=== PATIENT | female | born 1975 | race Hispanic/Latino ===

== ENCOUNTER 2016-09-22 09:59 | Emergency (ER) | payer OTHER ==
[~2016-09-22] VITALS: Ht 157.5 cm; Wt 69.1 kg
[~2016-09-22 09:59] MED LIST: AMIT100T2 PO; CEFD300C3 PO; CITA40TA13 PO; HYDR-4003 PO; METO-274 PO; ONDA8TAB7 PO; OXYC1TAB24 PO; TAMS0.4C98 PO; TOPI-59 PO
[2016-09-22 10:02] VITALS: BP 136/94; PULSE 117; RESP 16; O2SAT 100
--- NOTE | 2016-09-22 10:21 | ED.REPORT ---
HPI-Abd Pain F 40 and Over Date of Service Sep 22, 2016 ED Provider: Chidi Aldana DO A 40 year old female with a history of kidney stones and hypertension presents to the ED complaining of abdominal pain that began 4 days ago. She describes her pain as "throbbing" . Associated symptoms include dysuria, chills, back pain , weakness and bilateral leg pain. Her symptoms have been constant since onset and she began to express concern when symptoms did not resolve. Patient took metronidazole with little relief which she had left over from a different infection 2 months. She denies fever, abnormal vaginal discharge or . Nursing Notes Stated Complaint: BACK AND ABDOMINAL PAIN Chief Complaint: Female Abdominal Pain Nursing Notes Reviewed: Yes Allergies: Coded Allergies: Penicillins (Verified Allergy, Severe, RASH, 08/18/15) ketorolac tromethamine (Verified Allergy, Intermediate, Extrapyramidal Symptoms, 08/18/15) promethazine (Verified Adverse Reaction, Mild, jitterness and restlessness , 08/18/15) Uncoded Allergies: DROPERIDOL (Adverse Reaction, Intermediate, Agitation, 11/28/11) CONFIRMED 5-30 AND 5-31 "I NEED TO LEAVE' ANXIETY Scheduled Amitriptyline (Amitriptyline) 100 Mg Tablet 100 MG PO HS Amitriptyline (Amitriptyline) 75 Mg Tablet 75 MG PO HS Cefdinir (Cefdinir) 300 Mg Capsule 300 MG PO BID Citalopram (Citalopram) 40 Mg Tablet 40 MG PO DAILY Metoprolol Succinate ER (Metoprolol Succinate ER) 100 Mg Tab.er.24h 100 MG PO BID Metoprolol Succinate ER (Metoprolol Succinate ER) 100 Mg Tab.er.24h 100 MG PO DAILY Sulfamethoxazole/Trimeth 800-160 mg (Bactrim DS) 1 Each Tablet 1 TABLET PO BID Tamsulosin (Flomax) 0.4 Mg Capsule 0.4 MG PO DAILY Topiramate (Topiramate) 25 Mg Tablet 50 MG PO DAILY Scheduled PRN Hydrocodone-Acetaminophen 5-325 mg (Hydrocodone-Acetaminophen 5-325 mg) 1 Each Tablet 1 TABLET PO Q6H PRN PRN For Pain Ondansetron ODT (Zofran ODT) 8 Mg Tablet 8 MG PO Q6H PRN PRN For Nausea oxyCODONE-Acetaminophen 5-325 mg (oxyCODONE-Acetaminophen 5-325 mg) 1 Tab Tablet 1-2 TAB PO Q4H PRN PRN For Severe Pain General Time Seen by MD: 10:16 Chief Complaint Abdominal pain Hx Obtained From: Patient Arrived By: Walk-in Sudden in Onset?: No Onset Occurred: 4 days ago Symptom Duration: Since onset Progression since Onset: Constant Location: : LLQ: Suprapubic Quality: Throbbing Radiation: : Back Severity: Current: Moderate Severity: Maximum: Severe Associated with: Reports: Back pain, Chills, Dysuria, Denies: Fever, Vaginal bleeding, Vaginal discharge Pertinent Negative: Pt denies other symptoms Status: Negative - ED urine HCG Recent Healthcare: No recent doctor visit, No recent hospitalization Risk Factors )( AAA Risk Stratification Hypertension Risk factors reviewed Past Medical History Past Medical History History of kidney stones. History of ESBL E.coli GERD. Hypertension. Depression. Some intracranial event: Patient was transferred to [facility] with a H/A and abnormal CT and initial concern for possible hemorrhage. Thought to potentially be a parasite (patient report) followed at clinic, sound like concern was for cystercicosis. She follows with, I think a neurologist down in [place] for this. Frequent urinary tract infections. Reports: Hypertension Past Surgical History Tubual ligation Craniotomy Family History Noncontributory Smoking History Never Smoker Social History Other Social History: Good social support, , Local resident Ambulatory Status Independent Review of Systems Constitutional: Reports: Chills, Denies: Fever Cardiovascular: Denies: Chest pain GI: Reports: Abdominal pain Female: Reports: Dysuria, Flank pain, Denies: , Vaginal bleeding - abnl, Vaginal discharge Musculoskeletal: Reports: Back pain Complete sys rev & neg: except as marked. Physical Exam Vital Signs Vital Signs (First) Date Time Temp Pulse Resp B/P Pulse Ox O2 Delivery O2 Flow Rate FiO2 09/22/16 10:02 36.4 117 16 136/94 100 Room Air Initial VS: Reviewed Head / Eyes: Atraumatic, Normocephalic, PERRL Skin: Warm, Dry, No cyanosis Neurologic: Alert, Oriented, Nonfocal Psychiatric: Mood/affect normal, Behavior normal, Normal thought content General/Constitutional: Awake, Alert Distress / Hydration: Positive: Distress moderate Respiratory / Chest: Atraumatic, Breath sounds NL, Breath sounds = bilat, No respiratory distress Cardiovascular: Regular rhythm, Heart sounds NL Heart Rate / Rhythm: Positive: Tachycardia Abdomen: Atraumatic, Soft, No guarding, No rebound, No palpable mass, No pulsatile mass Tenderness/Guarding/Rebound: Positive: Tender LLQ..., Tender suprapubic Back: Atraumatic BACK: Right sided CVA tenderness to percussion. Upper Extremity / MS: Atraumatic, Inspection NL, Neurologic intact, Vascular intact, No edema Lower Extremity / Pelvis / MS: Atraumatic, Inspection NL, Neurologic intact, Vascular intact, No edema Interpretation & Diagnostics Lab Results Interpretation Result Diagram: 09/22/16 1140 09/22/16 1140 Test 09/22/16 10:55 09/22/16 11:40 09/22/16 12:27 09/22/16 12:30 Urine Color Yellow (YELLOW) Urine Appearance Hazy (CLEAR,HAZY) Urine pH 6.5 (5.0-8.0) Urine Specific Jewett N (1.003-1.035) Urine Protein Negativemg/dL (NEG,TRACE) Urine Glucose (UA) Negativemg/dL (NEGATIVE) Urine Ketones Negativemg/dL (NEGATIVE) Urine Occult Blood Negative (NEGATIVE) Urine Nitrite Negative (NEGATIVE) Urine Bilirubin Negative (NEGATIVE) Urine Urobilinogen Normalmg/dL (NORMAL) Urine Leukocyte Esterase Trace (NEGATIVE) Urine RBC 0-2/hpf (0-2) Urine WBC 6-10/hpf (0-5) Urine Epithelial Cells Many/hpf (NONE-MOD) Urine Crystals None seen (NONE SEEN) Urine Bacteria Moderate/hpf (NONE-FEW) Urine Hyaline Casts None/lpf (NONE) Urine Granular Casts None seen (NONE SEEN) Urine Waxy Casts None seen (NONE SEEN) Urine Red Blood Cell Casts None seen (NONE SEEN) Urine White Blood Cell Casts None seen (NONE SEEN) Urine Mucus None seen (None Seen) Urine Trichomonas None seen (NONE SEEN) Urine Yeast None (NONE SEEN) Urinalysis Comment None Urine Culture Reflexed Indicated White Blood Count 4.8th/mm3 (3.8-10.1) Red Blood Count 4.88mil/mm3 (3.90-5.20) Hemoglobin 14.3g/dL (12.0-15.6) Hematocrit 42.2% (35.0-46.0) Mean Corpuscular Volume 86.5fL (81-100) Mean Corpuscular Hemoglobin 29.3pg (27.0-35.0) Mean Corpuscular Hemoglobin Concent 33.9% (32.0-37.0) Red Cell Distribution Width 13.5% (12.3-15.4) Platelet Count 243bil/L (150-400) Neutrophils (%) (Auto) 60.4% (40-74) Lymphocytes (%) (Auto) 30.6% (14-46) Monocytes (%) (Auto) 6.7% (4-12) Eosinophils (%) (Auto) 1.7% (0-5) Basophils (%) (Auto) 0.6% (0-3) Sodium Level 140mEq/L (134-144) Potassium Level 4.1mEq/L (3.5-5.2) Chloride Level 103mEq/L (97-108) Carbon Dioxide Level 21mmol/L (18-29) Blood Urea Nitrogen 11mg/dL (6-24) Creatinine 0.76mg/dL (0.57-1.00) Estimat Glomerular Filtration Rate 120mL/min (>59) Glucose Level 91mg/dL (60-99) Calcium Level 9.3mg/dL (8.5-10.1) Magnesium Level 2.1mg/dL (1.6-2.6) Total Bilirubin 0.3mg/dL (0.0-1.2) Aspartate Amino Transf (AST/SGOT) 27U/L (0-50) Alanine Aminotransferase (ALT/SGPT) 27U/L (0-32) Alkaline Phosphatase 95U/L (25-150) Total Protein 7.8g/dL (6.4-8.4) Albumin 4.4g/dL (3.4-5.0) Lipase 27U/L (13-60) Lactic Acid Level 1.2mmol/L (0.4-2.0) Hold Sexton Top Tube Received (Received) CT Abd / Pelvis Interpretation IMPRESSION: 1. No evidence of urinary tract obstruction. 2. 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 3. No change in nonobstructing right inferior pole nephrolith. 4. Normal appendix. Dictated by: Misti White M.D. on 09/22/2016 at 10:49 Study type: Abdominal CT no contrast Interpretation / Wet Read by: Interpret - Radiologist Re-Eval/Medical Decision Med Decision/Clinical Course Patient has history of ESBL e. coli. UTI and after having symptoms starting several days ago she began taking a leftover prescription of metronidazole that was prescribed back in June for a different problem. She has been taking Azo and has not noticed any relief of her symptoms. Today her UA is consistent with a urinary tract infection showing pyuria. I did review her previous urine cultures and they were sensitive to both nitrofurantoin and Bactrim. I began Bactrim here in the ER and patient will continue to take this for one week. She requests to have refills available to her for future UTIs as a urologist has suggested this to her. I suggested she talk about this with her primary care doctor and patient is agreeable. Given her history of kidney stones and her right flank pain I ordered a CT scan which did not demonstrate pyelonephritis or ureterolithiasis/hydronephrosis, or other concerning findings. She did have a nonobstructing right renal stone that was present previously. These findings were reviewed with the patient in light of her normal vitals (initially tachycardic but resolved with fluids and pain control), normal labs, and normal CT she was discharged home with antibiotics. I advised her to take Azo for the dysuria. Re-Evaluation/Progress #1: Time of Eval: 12:28 Patient Status: Pain improved Re-Evaluation/Progress Note: Patient is rechecked and reports that her pain has improved. She is informed of her lab results, CT results and diagnosis. She states that she did not complete the antibiotic treatment. All of the patient's questions are adressed. She understands and agrees with the treatment plan. Re-Evaluation/Progress #2: Time of Eval: 13:56 Patient Status: Condition worsened Re-Evaluation/Progress Note: Patient reports that she feels fatigued and diaphoretic. Vitals are rechecked. Counseled Regarding: Diagnosis, Lab results, Need for follow-up, When/why to return to ED Discharge & Departure Primary Impression: Urinary tract infection Urinary tract infection type: site unspecified Hematuria presence: without hematuria Qualified Code: N39.0 - Urinary tract infection, site not specified Additional Impressions: Right flank pain Nephrolithiasis Renal calcinosis Ruled Out: Pyelonephritis, Ureterolithiasis, Appendicitis, Urinary tract obstruction Disposition: Home Discharge Condition All VS Reviewed: Yes Condition: Improved Patient Instructions: Urinary Tract Infection in Women (ED) Additional Instructions: Thank you for trusting us with your care this morning. Your emergency department evaluation lab work today is indicative of a urinary tract infection and I believe that this is the likely cause of your symptoms. Please take Bactrim for the next 7 days starting tomorrow. You received your first dose today in the emergency department. I recommend that you consider taking a cranberry supplement every day to prevent future urinary tract infection. Schedule a follow-up appointment with your primary care physician in the next 2- 3 days for a recheck. Please return to the emergency department immediately for any new or worsening conditions including any blood in your urine, worsening pain, fever or chills. Referrals: Eliu Sorto MD (PCP) Garrett Attestation Portions of this note were transcribed by Marleny Villagran. I, Dr. Aldana personally performed the history, physical exam and medical decision-making; I reviewed and confirmed the accuracy of the information in the transcribed note. Signed by: Garrett Smith, 09/22/16 1300. copies to: Eliu Sorto MD, Gary R DO Sep 22, 2016 10:21 MARLENY VILLAGRAN Sep 22, 2016 10:30
[2016-09-22] MEDS ORDERED: 0.9% Sodium Chloride 1,000 ML IV ONE (10:28)
--- NOTE | 2016-09-22 10:53 | DRSVH ---
PROCEDURE: CT KUB ([id number]) INDICATIONS: R flank pain, hematuria, h/o stones TECHNIQUE: Noncontrast 5 mm thick sections acquired from the diaphragms to the symphysis. 5 mm thick coronal an d sagittal reformats were then performed. For radiation dose reduction, the following was used: aut omated exposure control, adjustment of mA and/or kV according to patient size. COMPARISON: [facility], CT, CT ABD PELVIS WO CON, 02/14/2016, 16:01. FINDINGS: Image quality: Excellent. Lung bases: Lung bases are clear. Heart size is normal. Urinary system: Both kidneys are normal in size. Bilateral medullary high density is present diffuse ly. No change in 4 mm diameter nonobstructing calculus within the right inferior pole kidney. No hydr onephrosis or perinephric fat stranding. Both ureters appear non-dilated throughout their expected c ourses. Bladder wall thickness is normal; no calcified bladder stones. Other solid organs: Liver and spleen are normal in size. Gallbladder is within normal limits. Panc reas is normal in contours. No adrenal nodules. Peritoneum and bowel: Unenhanced bowel loops demonstrate normal wall thickness and caliber. No free fluid or air. Nodes and vessels: No retroperitoneal or mesenteric adenopathy by size criteria. Aorta and inferior vena cava are normal in caliber. Abdominal wall: No ventral hernias. Pelvis: No free pelvic fluid. No inguinal hernias or adenopathy. Bones: No suspicious bony lesions. No vertebral body compression fractures. IMPRESSION: 1. No evidence of urinary tract obstruction. 2. 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 3. No change in nonobstructing right inferior pole nephrolith. 4. Normal appendix. Dictated by: Misti White M.D. on 09/22/2016 at 10:49 Approved by: Misti White M.D. on 09/22/2016 at 10:52
[2016-09-22 11:21] LABS: APPEARANCE,URINE HAZY (CLEAR,HAZY); COLOR,URINE YELLOW (YELLOW); OCCULT BLOOD,URINE NEGATIVE (NEGATIVE); PH,URINE 6.5 (5.0-8.0); UROBILINOGEN,URINE NORMAL (NORMAL)
[2016-09-22] MEDS: Ondansetron 2 mg/mL 2 mL Inj IVPUSH PRN ×2 (11:24→12:13)
[2016-09-22] MEDS: HYDROmorphone 1 mg/mL Inj IVPUSH PRN ×2 (11:24→12:13)
[2016-09-22 11:57] LABS: BASOPHILS % (AUTO) 0.6 % (0-3); EOSINOPHILS % (AUTO) 1.7 % (0-5); MONOCYTES % (AUTO) 6.7 % (4-12); Mean Corpuscular Hemoglobin 29.3 pg (27.0-35.0); Mean Corpuscular Volume 86.5 fL (81-100); NEUTROPHILS % (AUTO) 60.4 % (40-74); Platelet Count 243 bil/L (150-400)
[2016-09-22 12:13] VITALS: BP 122/82; PULSE 92; O2SAT 100
[2016-09-22 12:17] LABS: Magnesium 2.1 mg/dL (1.6-2.6)
[2016-09-22] MEDS ORDERED: Trimethoprim-Sulfa 160 mg-800 mg Tablet PO ONE (12:35)
[2016-09-22] MEDS ORDERED: SULF1TAB7 PO (12:54)
[2016-09-22] MEDS ORDERED: HYDROmorphone 1 mg/mL Inj IVPUSH ONE (13:30)
[2016-09-22] MEDS ORDERED: METO-274 PO (13:45)
[2016-09-22] MEDS ORDERED: AMIT75TA2 PO (13:45)
[2016-09-22 14:00] VITALS: BP 130/87; PULSE 96; O2SAT 97
[2016-09-22 14:39] VITALS: BP 130/87; PULSE 96; RESP 16; O2SAT 97
== END 2016-09-22 13:37 | disposition home or self-care (01) ==
LOC: SED 09:59
DX: N39.0 Urinary tract infection, site not specified (principal); E83.59 Other disorders of calcium metabolism; R10.32 Left lower quadrant pain; N20.0 Calculus of kidney; I10 Essential (primary) hypertension; K21.9 Gastro-esophageal reflux disease without esophagitis; Z88.0 Allergy status to penicillin; Z88.8 Allergy status to other drugs, medicaments and biological substances
CPT/HCPCS: 36415; 74176; 80053; 81000; 81025; 83605; 83690; 83735; 85025; 87086; 96361; 96374; 96375; 96376; 99285; J1170; J2405; J7030

== ENCOUNTER 2017-01-23 12:45 | Emergency (ER) | payer OTHER ==
[~2017-01-23] VITALS: Ht 157.5 cm; Wt 75.0 kg
[~2017-01-23 12:45] MED LIST changes: +AMIT75TA2 PO; +SULF1TAB7 PO
[2017-01-23 13:19] VITALS: BP 125/79; PULSE 85; RESP 10; O2SAT 100
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
[2017-01-23] MEDS ORDERED: MetoCLOpramide 5 mg/mL 2 mL Inj IM ONE (15:40)
--- NOTE | 2017-01-23 15:50 | DRSVH ---
PROCEDURE: CT BRAIN WITHOUT CONTRAST ([id number]) INDICATIONS: head trauma TECHNIQUE: Noncontrast 4.5 mm thick angled axial sections acquired from the foramen magnum to the vertex, with c oronal reformats. COMPARISON: [facility], CT, CT BRAIN WO JEREMIE, 05/22/2015, 17:52. FINDINGS: Image quality: Excellent. CSF spaces: Basal cisterns are patent. No extra-axial fluid collections. Ventricles are normal in size and shape. Brain: Hyperdensities along the cerebral sulci in the left parietal lobe are noted, most likely caus ed by artifacts. There is a hepatic surgical plate over the left parietal bone. The appearance was pr esent on 05/22/2015. No midline shift. No intracranial masses or hemorrhage. Han-white matter inte rface is normal. Skull and face: Craniotomy with surgical plate in the left frontoparietal and occipital bones. No ac shari calvarial fracture identified. Sinuses: Visualized sinuses and mastoids are clear. IMPRESSION: 1. No acute intracranial abnormality. 2. Linear hyperdensityies along the left parietal cerebral sulci are felt most likely caused by artif acts from adjacent metallic surgical plate. Because of the presence of artifacts, subtle intracranial bleed could be obscured. If clinical symptoms persist or clinical suspicion for pathology is high, a short interval followup examination is suggested. Dictated by: Rudy Meza M.D. on 01/23/2017 at 15:39 Approved by: Rudy Meza M.D. on 01/23/2017 at 15:48
[2017-01-23 16:17] VITALS: BP 132/74; PULSE 70; RESP 18; O2SAT 99
== END 2017-01-23 16:18 | disposition home or self-care (01) ==
LOC: SED 12:45
DX: G43.909 Migraine, unspecified, not intractable, without status migrainosus (principal); I10 Essential (primary) hypertension; K21.9 Gastro-esophageal reflux disease without esophagitis; Z79.899 Other long term (current) drug therapy; Z90.710 Acquired absence of both cervix and uterus; Z88.0 Allergy status to penicillin; Z88.8 Allergy status to other drugs, medicaments and biological substances
CPT/HCPCS: 70450; 96372; 99284; J2765

== ENCOUNTER 2017-02-07 09:42 | Emergency (ER) | payer OTHER ==
[~2017-02-07] VITALS: Ht 157.5 cm; Wt 75.0 kg
[~2017-02-07 09:42] MED LIST changes: -METO-274 PO; +METO-394 PO
[2017-02-07 09:59] VITALS: BP 162/77; PULSE 99; RESP 12; O2SAT 99
[2017-02-07] MEDS ORDERED: 0.9% Sodium Chloride 1,000 ML IV ONE ×2 (10:26→12:39)
--- NOTE | 2017-02-07 10:29 | ED.REPORT ---
HPI-Abd Pain F 40 and Over Date of Service Feb 07, 2017 ED Provider: Chidi Aldana DO Patient is a 41 year old female with a hx of HTN, CVA, kidney stones and kidney infections who presents to the ED complaining of sudden onset R-flank pain onset 30 minutes prior to arrival. Associated symptoms include urinary urgency, decreased urination, chills, bloating, and nausea. She denies fever, dysuria, vomiting, abdominal pain, or any other symptoms. Patient started her period today. Nursing Notes Stated Complaint: BACK PAIN Chief Complaint: Back Pain or Injury Nursing Notes Reviewed: Yes Allergies: Coded Allergies: Penicillins (Verified Allergy, Severe, RASH, 08/18/15) ketorolac tromethamine (Verified Allergy, Intermediate, Extrapyramidal Symptoms, 08/18/15) promethazine (Verified Adverse Reaction, Mild, jitterness and restlessness , 08/18/15) Uncoded Allergies: DROPERIDOL (Adverse Reaction, Intermediate, Agitation, 11/28/11) CONFIRMED 5- AND - "I NEED TO LEAVE' ANXIETY Scheduled Amitriptyline (Amitriptyline) 100 Mg Tablet 100 MG PO HS Amitriptyline (Amitriptyline) 75 Mg Tablet 75 MG PO HS Cefdinir (Cefdinir) 300 Mg Capsule 300 MG PO BID Citalopram (Citalopram) 40 Mg Tablet 40 MG PO DAILY Metoprolol Succinate ER (Metoprolol Succinate ER) 100 Mg Tab.er.24h 100 MG PO BID Metoprolol Succinate ER (Metoprolol Succinate ER) 100 Mg Tab.er.24h 100 MG PO DAILY Sulfamethoxazole/Trimeth 800-160 mg (Bactrim DS) 1 Each Tablet 1 TABLET PO BID Tamsulosin (Flomax) 0.4 Mg Capsule 0.4 MG PO DAILY Topiramate (Topiramate) 25 Mg Tablet 50 MG PO DAILY Scheduled PRN Hydrocodone-Acetaminophen 5-325 mg (Hydrocodone-Acetaminophen 5-325 mg) 1 Each Tablet 1 TABLET PO Q6H PRN PRN For Pain Hydrocodone-Acetaminophen 5-325 mg (Hydrocodone-Acetaminophen 5-325 mg) 1 Each Tablet 1-2 TABLET PO Q4H PRN PRN For Pain Ondansetron ODT (Zofran ODT) 8 Mg Tablet 8 MG PO Q6H PRN PRN For Nausea Ondansetron ODT (Zofran ODT) 4 Mg Tablet 4 MG PO Q4H PRN PRN For Nausea Phenazopyridine (Phenazopyridine) 200 Mg Tablet 200 MG PO TID PRN PRN For Pain oxyCODONE-Acetaminophen 5-325 mg (oxyCODONE-Acetaminophen 5-325 mg) 1 Tab Tablet 1-2 TAB PO Q4H PRN PRN For Severe Pain General Time Seen by MD: 10:26 Chief Complaint Flank pain right Hx Obtained From: Patient Arrived By: Walk-in Sudden in Onset?: Yes Onset Occurred: 16 - 30 minutes ago Symptom Duration: Since onset Similar Sx Previous: Yes Risk Factors )( AAA Risk Stratification HypertensionNo Smoking Risk factors reviewed Past Medical History Past Medical History History of kidney stones, kidney infections, and recurrent UTI's History of ESBL E.coli GERD. Hypertension. Depression. Some intracranial event: Patient was transferred to [facility] with a H/A and abnormal CT and initial concern for possible hemorrhage. Thought to potentially be a parasite (patient report) followed at clinic, sound like concern was for cystercicosis. She follows with, I think, a neurologist down in [place] for this. Pt reports subsequent memory issues Frequent urinary tract infections. Reports: GERD, Hypertension Past Surgical History Tubual ligation Craniotomy Kidney stone removal hiatal hernia surg esophageal surgery Reports: Hysterectomy Family History Noncontributory Smoking History Never Smoker Social History Other Social History: Good social support, , Local resident Ambulatory Status Independent Review of Systems +bloating Constitutional: Reports: Chills, Denies: Fever GI: Reports: Nausea, Denies: Abdominal pain, Vomiting Female: Reports: Flank pain, Urinary urgency, Urination decreased, Denies: Dysuria Complete sys rev & neg: except as marked. Physical Exam Vital Signs Vital Signs (First) Date Time Temp Pulse Resp B/P Pulse Ox O2 Delivery O2 Flow Rate FiO2 02/07/17 09:59 36.8 99 12 162/77 99 Room Air Initial VS: Reviewed, Vital signs normal Head / Eyes: Atraumatic, Normocephalic Neck: Full range of motion Skin: Warm, Dry Neurologic: Alert, Oriented, Nonfocal Psychiatric: Mood/affect normal, Behavior normal, Normal thought content General/Constitutional: Awake, Alert Distress / Hydration: Positive: Distress moderate Respiratory / Chest: Atraumatic, Breath sounds NL, Breath sounds = bilat, No respiratory distress Cardiovascular: Heart rate NL (borderline tachycardia ), Regular rhythm, Heart sounds NL Abdomen: Atraumatic, Soft, Non-tender Flank / Spine / Paraspinal: Positive: Flank tender R Interpretation & Diagnostics Lab Results Interpretation Result Diagram: 02/07/17 1010 02/07/17 1010 Test 02/07/17 10:10 02/07/17 12:42 White Blood Count 5.0th/mm3 (3.8-10.1) Red Blood Count 4.36mil/mm3 (3.90-5.20) Hemoglobin 13.1g/dL (12.0-15.6) Hematocrit 38.1% (35.0-46.0) Mean Corpuscular Volume 87.4fL (81-100) Mean Corpuscular Hemoglobin 30.0pg (27.0-35.0) Mean Corpuscular Hemoglobin Concent 34.4% (32.0-37.0) Red Cell Distribution Width 13.7% (12.3-15.4) Platelet Count 263bil/L (150-400) Neutrophils (%) (Auto) 59.9% (40-74) Lymphocytes (%) (Auto) 27.2% (14-46) Monocytes (%) (Auto) 10.3% (4-12) Eosinophils (%) (Auto) 1.8% (0-5) Basophils (%) (Auto) 0.4% (0-3) Sodium Level 141mEq/L (134-144) Potassium Level 3.7mEq/L (3.5-5.2) Chloride Level 105mEq/L (97-108) Carbon Dioxide Level 23mmol/L (18-29) Blood Urea Nitrogen 13mg/dL (6-24) Creatinine 0.76mg/dL (0.57-1.00) Estimat Glomerular Filtration Rate 119mL/min (>59) Glucose Level 89mg/dL (60-99) Lactic Acid Level 1.3mmol/L (0.4-2.0) Calcium Level 9.1mg/dL (8.5-10.1) Magnesium Level 2.2mg/dL (1.6-2.6) Total Bilirubin 0.2mg/dL (0.0-1.2) Aspartate Amino Transf (AST/SGOT) 16U/L (0-50) Alanine Aminotransferase (ALT/SGPT) 17U/L (0-32) Alkaline Phosphatase 82U/L (25-150) Total Protein 7.1g/dL (6.4-8.4) Albumin 4.1g/dL (3.4-5.0) Lipase 27U/L (13-60) Urine Color Straw (YELLOW) Urine Appearance Hazy (CLEAR,HAZY) Urine pH 6.5 (5.0-8.0) Urine Specific [place] 1.015 (1.003-1.035) Urine Protein Negativemg/dL (NEG,TRACE) Urine Glucose (UA) Negativemg/dL (NEGATIVE) Urine Ketones Lmg/dL (NEGATIVE) Urine Occult Blood Negative (NEGATIVE) Urine Nitrite Negative (NEGATIVE) Urine Bilirubin Negative (NEGATIVE) Urine Urobilinogen Normalmg/dL (NORMAL) Urine Leukocyte Esterase Negative (NEGATIVE) Urine RBC >50/hpf (0-2) Urine WBC 0-5/hpf (0-5) Urine Epithelial Cells Occasional/hpf (NONE-MOD) Urine Crystals None seen (NONE SEEN) Urine Bacteria Few/hpf (NONE-FEW) Urine Hyaline Casts None/lpf (NONE) Urine Granular Casts None seen (NONE SEEN) Urine Waxy Casts None seen (NONE SEEN) Urine Red Blood Cell Casts None seen (NONE SEEN) Urine White Blood Cell Casts None seen (NONE SEEN) Urine Mucus None seen (None Seen) Urine Trichomonas None seen (NONE SEEN) Urine Yeast None (NONE SEEN) Urinalysis Comment None Urine Culture Reflexed Not indicated Lab Results Interpretation: CT KUB: IMPRESSION: 1. No evidence of obstructive uropathy. 2. Bilateral medullary nephrocalcinosis and nonobstructing right renal stone redemonstrated. Dictated by: Jeremias Hays M.D. on 02/07/2017 at 11:38 Approved by: Jeremias Hays M.D. on 02/07/2017 at 11:45 Re-Eval/Medical Decision Med Decision/Clinical Course 41-year-old female sick history of recurrent renal stones and UTIs presented with symptoms of right flank pain. She notes this feels just like previous kidney stones. She also notes some difficulty with urination and blood in her urine. Her urinalysis is normal except for immature area. Her CT KUB does not reveal any ureterolithiasis or urinary obstruction. She received 4 mg total of Dilaudid here as well as Zofran to control her pain. I suspect that given her severe pain and her symptoms of kidney stones, she likely just passed a stone and therefore we cannot see it on the scan. Her symptoms are much better at the time of discharge, however I sent her home with a small dose of hydrocodone and Zofran as needed for pain and nausea as well as instructions to follow up with her PCP early next week. Patient understands and agrees with the plan. She will return if her symptoms return or worsen Re-Evaluation/Progress : Time of Eval: 13:59 Re-Evaluation/Progress Note: Rechecked patient who is feeling much better. Discussed imaging results and the probability that pt passed a kidney stone. Discussed plan for discharge. Patient understands and agrees with plan. All questions addressed at this time. Counseled Regarding: Diagnosis, Lab results, Need for follow-up, When/why to return to ED Discharge & Departure Primary Impression: Right flank pain Additional Impression: Hematuria Ruled Out: Urinary tract infection, Ureterolithiasis Disposition: Home Discharge Condition All VS Reviewed: Yes Condition: Improved Patient Instructions: Kidney Stones (ED) Additional Instructions: Thank you for coming to the emergency department. Your CT scan did not show a kidney stone. It is possible that you already passed the stone. Take Pyridium as prescribed for urinary discomfort. Ibuprofen (up to 800mg 3 times a day) can also help relieve your pain. For extreme pain, take [place] as prescribed. I am also prescribing you Zofran which you can take for nausea and vomiting. Follow up with your primary doctor within the next week. Return to the emergency department for any new or concerning symptoms. Referrals: NOPCP (PCP) Garrett Attestation Portions of this note were transcribed by Ramos Fuller. I, Dr. Aldana personally performed the history, physical exam and medical decision-making; I reviewed and confirmed the accuracy of the information in the transcribed note. Signed by: Garrett Winston, 02/07/17 Chidi Aldana DO Feb 07, 2017 10:29 RAMOS FULLER Feb 07, 2017 10:40
[2017-02-07] MEDS ORDERED: Ondansetron 2 mg/mL 2 mL Inj IVPUSH ONE (10:30)
[2017-02-07] MEDS: HYDROmorphone 1 mg/mL Inj IVPUSH PRN ×3 (10:34→12:04)
[2017-02-07 10:40] LABS: BASOPHILS % (AUTO) 0.4 % (0-3); EOSINOPHILS % (AUTO) 1.8 % (0-5); MONOCYTES % (AUTO) 10.3 % (4-12); Mean Corpuscular Volume 87.4 fL (81-100); NEUTROPHILS % (AUTO) 59.9 % (40-74); Platelet Count 263 bil/L (150-400)
[2017-02-07 10:51] LABS: Magnesium 2.2 mg/dL (1.6-2.6)
--- NOTE | 2017-02-07 11:47 | DRSVH ---
PROCEDURE: CT KUB ([id number]) INDICATIONS: Right flank pain TECHNIQUE: Noncontrast 5 mm thick sections acquired from the diaphragms to the symphysis. 5 mm thick coronal an d sagittal reformats were then performed. For radiation dose reduction, the following was used: aut omated exposure control, adjustment of mA and/or kV according to patient size. COMPARISON: [facility], CT, CT KUB, 09/22/2016, 10:48. FINDINGS: Image quality: Excellent. Lung bases: There is mild atelectasis. Heart size is normal. Urinary system: There is medullary nephrocalcinosis redemonstrated within the kidneys bilaterally. A nonobstructing renal stone is also again noted within the lower pole of the the right kidney measuri ng up to 5 mm. No discrete left renal stones. No hydronephrosis in the right or left kidney. Both ureters appear non-dilated throughout their expected courses. Bladder wall thickness is normal; no c alcified bladder stones. Other solid organs: Liver and spleen are normal in size. Gallbladder appears within normal limits w ithout calcified gallstones. Pancreas is normal in contours. No adrenal nodules. Peritoneum and bowel: Unenhanced bowel loops demonstrate normal wall thickness and caliber. No free fluid or air. Nodes and vessels: No retroperitoneal or mesenteric adenopathy by size criteria. Aorta and inferior vena cava are normal in caliber. Abdominal wall: No ventral hernias. Pelvis: There is a small amount of endocervical fluid. No free pelvic fluid. No inguinal hernias o r adenopathy. Bones: No suspicious bony lesions. No vertebral body compression fractures. IMPRESSION: 1. No evidence of obstructive uropathy. 2. Bilateral medullary nephrocalcinosis and nonobstructing right renal stone redemonstrated. Dictated by: Jeremias Hays M.D. on 02/07/2017 at 11:38 Approved by: Jeremias Hays M.D. on 02/07/2017 at 11:45
[2017-02-07] MEDS: Ondansetron 2 mg/mL 2 mL Inj IVPUSH PRN ×3 (12:02→13:22)
[2017-02-07 13:08] LABS: APPEARANCE,URINE HAZY (CLEAR,HAZY); COLOR,URINE STRAW (YELLOW); PH,URINE 6.5 (5.0-8.0)
[2017-02-07 13:09] LABS: OCCULT BLOOD,URINE NEGATIVE (NEGATIVE); UROBILINOGEN,URINE NORMAL (NORMAL)
[2017-02-07] MEDS ORDERED: HYDROmorphone 1 mg/mL Inj IVPUSH PRN (13:50)
[2017-02-07] MEDS ORDERED: Phenazopyridine 97.5 mg Tablet PO ONE (14:05)
[2017-02-07] MEDS ORDERED: PHEN-777 PO (14:59)
[2017-02-07] MEDS ORDERED: ONDA4TAB9 PO (14:59)
[2017-02-07] MEDS ORDERED: HYDR-4003 PO (14:59)
[2017-02-07 15:15] VITALS: BP 104/75; PULSE 75; RESP 12; O2SAT 97
== END 2017-02-07 15:17 | disposition home or self-care (01) ==
LOC: SED 09:42
DX: R31.9 Hematuria, unspecified (principal); I10 Essential (primary) hypertension; K21.9 Gastro-esophageal reflux disease without esophagitis; F32.9 Major depressive disorder, single episode, unspecified; Z87.442 Personal history of urinary calculi; Z87.440 Personal history of urinary (tract) infections; Z86.73 Personal history of transient ischemic attack (TIA), and cerebral infarction without residual deficits; Z88.0 Allergy status to penicillin; Z88.1 Allergy status to other antibiotic agents; Z88.6 Allergy status to analgesic agent
CPT/HCPCS: 36415; 74176; 80053; 81000; 81025; 83605; 83690; 83735; 85025; 96361; 96374; 96375; 96376; 99285; J1170; J2405; J7030